=== PATIENT | female | born 1945 | race Hispanic/Latino ===

== ENCOUNTER 2017-02-04 11:16 | Emergency (ER) | payer OTHER, BC ==
[2017-02-04 11:53] VITALS: RESP 18; TEMP 98.1; O2SAT 97
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
--- NOTE | 2017-02-04 13:27 | CT ---
CT cervical spine without IV contrast Indication: Neck pain Comparison: None available Technique: Axial computed tomography images were obtained of the cervical spine without the use of intravenous contrast. Coronal and sagittal reformatted images were created and reviewed. This CT exam was performed using 1 or more of the falling dose reduction techniques: Automated exposure control, adjustment of the MAA and/or kV according to patient size, and/or use of iterative reconstruction technique. Radiation dose: Total exam DLP = 450.79 mGy-cm. Findings: Straightening of the normal cervical lordosis may be related to muscle spasm or positioning. There is no evidence of acute fracture or subluxation. There is preserved alignment, vertebral body height, intervertebral disc spaces. Multilevel degenerative changes including small osteophyte formation and intervertebral disc space narrowing which is most prominent at the C6-C7 level. The prevertebral soft tissues and spinolaminar lines appear intact. The lateral masses are preserved. The dens tip is intact. There is proper alignment of the lateral masses of C1 with the C2 vertebral body. Included portions of the thyroid gland appear unremarkable. Included portions of lung apices appear clear. Impression: No evidence of acute fracture or subluxation. Straightening of the normal cervical lordosis may be related to muscle spasm or positioning. Multilevel degenerative changes.
[2017-02-04 13:46] VITALS: BP 126/80; PULSE 67
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
== END 2017-02-04 13:54 | disposition home or self-care (01) ==
LOC: C.ER 11:16
DX: S16.1XXA Strain of muscle, fascia and tendon at neck level, initial encounter (principal); V43.52XA Car driver injured in collision with other type car in traffic accident, initial encounter; Y92.410 Unspecified street and highway as the place of occurrence of the external cause